=== PATIENT | female | born 1955 | race Two or more races ===

== ENCOUNTER 2016-04-30 11:34 | Inpatient (IN) | payer OTHER ==
[~2016-04-30] VITALS: Ht 165.1 cm; Wt 126.0 kg
[~2016-04-30 11:34] MED LIST: ADV50050 INHALATION; ASPI-664 PO; CLOP75TA27 PO; EMPA10TA PO; GABA300C16 PO; GEMF600T60 PO; LEVO150T67 PO; LEVO250T9 PO; MONT10TA24 PO; NICO-524 TRANSDERM; NOVO7030 SC; OMEP20CA16 PO; OXYB5TAB7 PO; RANO500T2 PO; SIMV40TA2 PO
[2016-04-30] MEDS ORDERED: ONDANSETRON 4 MG INJ IV STA (12:48)
[2016-04-30] MEDS ORDERED: SOD CHLORIDE 0.9% 1,000 ML IV ONE (13:00)
[2016-04-30] MEDS ORDERED: MECLIZINE 12.5 MG TAB PO ONE (13:00)
--- NOTE | 2016-04-30 13:23 | RADRPT ---
PROCEDURE: Chest Radiograph. CLINICAL INDICATION: Chest pain TECHNIQUE: Single frontal chest radiograph. COMPARISON: Chest radiograph 10/15/2015 FINDINGS: Study is limited due to underpenetration secondary to patient body habitus. The heart is magnified and likely within normal limits for size. Atherosclerotic calcifications are present. No infiltrate or effusion is seen. The bones are intact. IMPRESSION: 1. No evidence of acute cardiopulmonary disease. 2. Atherosclerotic vascular disease. RPTAT: KK .Tony Mcallister MD, Date Time Electronically viewed and signed by .Tony Mcallister MD, on 04/30/2016 13:22 .B/
[2016-04-30 13:32] LABS: BASOPHIL # 0.1 10^3/ul (0.0-0.1); BASOPHILS % 0.6 % (0.0-2.0); EOSINOPHILS # 0.3 10^3/ul (0.0-0.5); EOSINOPHILS % 1.9 % (0.0-7.0); HEMATOCRIT 39.1 % (37.0-47.0); HEMOGLOBIN 12.9 g/dl (12.0-16.0); LYMPHOCYTES # 4.8 10^3/ul (0.8-2.9); LYMPHOCYTES % 34.6 % (15.0-51.0); MEAN CORPUSCULAR VOLUME 84.8 fl (82.0-101.0); MEAN PLATELET VOLUME 10.6 fl (7.4-10.4); MONOCYTE # 1.1 10^3/ul (0.3-0.9); MONOCYTES % 7.7 % (0.0-11.0); NEUTROPHIL # 7.7 10^3/ul (1.6-7.5); NEUTROPHILS % 55.2 % (39.0-77.0); PLATELET COUNT 230 10^3/UL (140-440); RED BLOOD COUNT 4.61 10^6/ul (4.20-5.40); RED CELL DISTRIBUTION WIDTH 14.9 % (11.5-14.5); UNCORRECTED WBC 13.9 10^3/ul (4.8-10.8); WHITE BLOOD COUNT 13.9 10^3/ul (4.8-10.8)
--- NOTE | 2016-04-30 13:32 | RADRPT ---
PROCEDURE: CT brain without contrast CLINICAL INDICATION: Dizziness TECHNIQUE: CT of the brain without contrast performed on a multidetector CT scanner, with multiplan ar reformats. One or more of the following dose reduction techniques were used: Automated exposure control, adjustment in mA and / or kV according to patient size, use of iterative reconstructive luke hnique. CTDIvol = 43 mGy; DLP = 630 mGy-cm. COMPARISON: None available FINDINGS: Chronic lacunar infarcts are identified in the anne, bilateral basal ganglia and thalami. No acute intracranial hemorrhage is identified. No extra-axial fluid collection is seen. There is no mass effect. No midline shift is identified. Ventricles and sulci are mildly enlarged compatible with generalized volume loss. There are mild to moderate areas of hypodensity in the periventricular - deep white matter which are nonspecific but suggestive of chronic small vessel ischemic changes. Le-white differentiation is preserved. Sella is partly empty. Atherosclerotic calcifications of the proximal intracranial arteries are noted. Osseous structures are grossly unremarkable. Mastoid air cells and imaged paranasal sinuses grossly clear. IMPRESSION: 1. No evidence of acute intracranial pathology. 2. Chronic pontine, bilateral basal ganglia and thalamic lacunar infarcts. 3. Mild generalized volume loss, with mild-moderate chronic small vessel ischemic changes. RPTAT: VV .Raphael Denis MD, MD Date Time Electronically viewed and signed by .Raphael Denis MD, on 04/30/2016 13:32 .O/
[2016-04-30 13:39] LABS: ALBUMIN 3.3 g/dl (3.3-4.9); CHLORIDE 104 mmol/L (97-110); INR 0.94; PROTIME 12.6 Sec (12.2-14.2)
[2016-04-30 13:40] LABS: POTASSIUM 4.8 mmol/L (3.5-5.1); SODIUM 143 mmol/L (135-144)
[2016-04-30 13:41] LABS: CREATININE 1.49 mg/dl (0.44-1.00)
[2016-04-30 13:42] LABS: ALANINE AMINOTRANSFERASE 25 IU/L (13-69); ALBUMIN/GLOBULIN RATIO 0.78; ALKALINE PHOSPHATASE 115 IU/L (42-121); ANION GAP 19 (8-16); ASPARTATE AMINO TRANSFERASE 22 IU/L (15-46); BILIRUBIN,INDIRECT 0.1 mg/dl (0-1.1); BILIRUBIN,TOTAL 0.1 mg/dl (0.2-1.3); BLOOD UREA NITROGEN 31 mg/dl (7-20); CALCIUM 9.1 mg/dl (8.4-10.2); CARBON DIOXIDE 25 mmol/L (21-31); GLUCOSE 226 mg/dl (70-220); TOTAL PROTEIN 7.5 g/dl (6.1-8.1)
[2016-04-30 13:59] LABS: TROPONIN-I < 0.012 ng/ml (0.00-0.12)
[2016-04-30 14:32] LABS: CONDITION 1; LH ANALYZER COMMENTS 1
--- NOTE | 2016-04-30 15:44 | ERA ---
ER Documentation Chief Complaint Date/Time DATE: 04/30/16 TIME: 15:36 Chief Complaint RIGHT EYE LOSS OF VISION FOR COUPLE OF DAYS, DIZZY, SLOWER THAN NORMAL; HPI Patient is a 60-year-old female who is a very difficult historian. Initially she came in saying that she could not see and that she was dizzy. Her daughter came and was able to translate in Hebrew for us. It turns out that she is having diplopia particularly when she looks down. It is apparently a an incomplete diplopia that is overlapping. When she covers up each eye the diplopia resolves. When she looks up the diplopia resolves. She also feels dizzy is in a spinning sensation and is having difficulty ambulating. She has been nauseated without any vomiting. Her daughter states that she has had altered mental status and has not been behaving normally. She has not hit her head on anything. She has not had any fever, chest pain, shortness of breath, coughing, congestion, rhinorrhea, sore throat or otalgia. She denies any focal paresthesias or weakness that is new or different. She apparently has some chronic weakness of her right lower extremity that has been present for 11 years. She denies any abdominal pain, diarrhea, dysuria, or hematuria. No abnormal rashes, bleeding, or bruising. In the remainder of the systems are negative. ROS All systems reviewed and are negative except as per history of present illness. Medications Home Meds Active Scripts Ranolazine* (Ranexa*) 500 Mg Tab.sr.12h, 500 MG PO Q12 for 30 Days, TAB 3 Refills Prov:CHEYANNE AGUILAR 10/11/15 Clopidogrel Bisulfate (Clopidogrel) 75 Mg Tablet, 75 MG PO DAILY for 30 Days, TAB 3 Refills Prov:CHEYANNE AGUILAR 10/11/15 Reported Medications Aspirin (Low Dose Aspirin) 81 Mg Tablet.dr, 81 MG PO DAILY, #30 TAB 10/15/15 Simvastatin* (Zocor*) 40 Mg Tablet, 40 MG PO QHS, #30 TAB 09/25/15 Empagliflozin (Jardiance) 10 Mg Tablet, 10 MG PO DAILY, TAB 09/25/15 Insulin Isophan/Regular (Humulin 70/30) 100 Units/Ml Susp, 30 UNIT SC TID, EA 09/25/15 Gabapentin* (Gabapentin*) 300 Mg Capsule, 300 MG PO TID, #90 CAP 09/25/15 Omeprazole* (Omeprazole*) 20 Mg Capsule.dr, 20 MG PO DAILY, #30 CAP 09/25/15 Oxybutynin Chloride* (Ditropan*) 5 Mg Tab, 5 MG PO TID, TAB 09/25/15 Salmeterol Xinaf-Fluticasone* (Advair*) 500/50 Diskus Inhaler, 1 INH INHALATION BID, #1 INHALER 09/25/15 Levothyroxine Sodium* (Levothyroxine Sodium*) 150 Mcg Tablet, 150 MCG PO BEFORE BREAKFAST, #30 TAB 09/25/15 Montelukast Sodium* (Montelukast Sodium*) 10 Mg Tablet, 10 MG PO QHS, #30 TAB 09/25/15 Gemfibrozil* (Gemfibrozil*) 600 Mg Tablet, 600 MG PO BID, TAB 09/25/15 Discontinued Scripts Nicotine* (Nicoderm* Patch) 21 mg/day Patch, 1 PATCH TRANSDERM DAILY for 30 Days , PATCH 3 Refills Prov:CHEYANNE AGUILAR 10/11/15 Levofloxacin* (Levofloxacin*) 250 Mg Tablet, 250 MG PO DAILY@06 for 3 Days, TAB Prov:CHEYANNE AGUILAR 10/11/15 Allergies Allergies: Coded Allergies: No Known Allergy (Unverified , 10/15/15) PMhx/Soc History of Surgery: Yes Anesthesia Reaction: No Hx Neurological Disorder: Yes (TIA) Hx Respiratory Disorders: Yes (COPD) Hx Cardiac Disorders: Yes Hx Psychiatric Problems: No Hx Miscellaneous Medical Probl: Yes (morbid obesity, heavy tobacco use, asthma , DM, HTN, hypothyroidism) Hx Alcohol Use: No Hx Substance Use: No Hx Tobacco Use: Yes Smoking Status: Current every day smoker FmHx Family History: coronary disease, diabetes Physical Exam Vitals Vital Signs Date Time Temp Pulse Resp B/P Pulse Ox O2 Delivery O2 Flow Rate FiO2 04/30/16 15:02 71 19 148/71 98 Room Air 04/30/16 11:36 97.8 74 18 158/74 98 Physical Exam Const: [] Head: Atraumatic Eyes: Normal Conjunctiva ENT: Normal External Ears, Nose and Mouth. Neck: Full range of motion..~ No meningismus. Resp: Clear to auscultation bilaterally Cardio: Regular rate and rhythm, no murmurs Abd: Soft, non tender, non distended. Normal bowel sounds Skin: No petechiae or rashes Back: No midline or flank tenderness Ext: No cyanosis, or edema Neur: Awake and alert Psych: Normal Mood and Affect Result Diagram: 04/30/16 1304 04/30/16 1304 Results 24 hrs Laboratory Tests Test 04/30/16 13:04 Activated Partial Thromboplast Time 31.0Sec Alanine Aminotransferase (ALT/SGPT) 25IU/L Albumin 3.3g/dl Albumin/Globulin Ratio 0.78 Alkaline Phosphatase 115IU/L Anion Gap 19 Aspartate Amino Transf (AST/SGOT) 22IU/L Basophils # 0.110^3/ul Basophils % 0.6% Blood Morphology Comment Blood Urea Nitrogen 31mg/dl Calcium Level 9.1mg/dl Carbon Dioxide Level 25mmol/L Chloride Level 104mmol/L Creatinine 1.49mg/dl Direct Bilirubin 0.00mg/dl Eosinophils # 0.310^3/ul Eosinophils % 1.9% Globulin 4.20g/dl Glucose Level 226mg/dl Hematocrit 39.1% Hemoglobin 12.9g/dl INR International Normalized Ratio 0.94 Indirect Bilirubin 0.1mg/dl Lymphocytes # 4.810^3/ul Lymphocytes % 34.6% Mean Corpuscular Hemoglobin 28.0pg Mean Corpuscular Hemoglobin Concent 33.0g/dl Mean Corpuscular Volume 84.8fl Mean Platelet Volume 10.6fl Monocytes # 1.110^3/ul Monocytes % 7.7% Neutrophils # 7.710^3/ul Neutrophils % 55.2% Nucleated Red Blood Cells # 0.010^3/ul Nucleated Red Blood Cells % 0.0/100WBC Platelet Count 77694^3/UL Potassium Level 4.8mmol/L Prothrombin Time 12.6Sec Prothrombin Time Ratio 1.0 Red Blood Count 4.6110^6/ul Red Cell Distribution Width 14.9% Sodium Level 143mmol/L Total Bilirubin 0.1mg/dl Total Protein 7.5g/dl Troponin I < 0.012ng/ml White Blood Count 13.910^3/ul Current Medications Medications (Trade) Dose Ordered Sig/Louie Route PRN Reason Start Time Stop Time Status Last Admin Dose Admin Sodium Chloride (NS) 1,000 ml @ 1,000 mls/hr Q1H ONCE IV 04/30/16 13:00 04/30/16 13:59 DC 04/30/16 13:08 Meclizine HCl (Antivert) 25 mg ONCE ONCE PO 04/30/16 13:00 04/30/16 13:01 DC 04/30/16 14:20 Ondansetron HCl (Zofran Inj) 4 mg ONCE STAT IV 04/30/16 12:48 04/30/16 12:53 DC 04/30/16 13:08 Procedures/MDM EKG demonstrates a normal sinus rhythm at 83 bpm without any evidence of acute ischemia noted, there is poor R-wave progression noted with low voltage diffusely and nonspecific ST-T wave changes, there are no old EKGs available for comparison. 1539: There is no significant change in the patient's examination. I have put out a call to Dr. 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
[2016-04-30] MEDS ORDERED: ACETAMINOPHEN 325 MG TAB PO PRN ×2 (16:00→17:30)
[2016-04-30] MEDS ORDERED: ONDANSETRON 4 MG INJ IV PRN ×2 (16:00→17:30)
[2016-04-30] MEDS ORDERED: BISACODYL 10 MG SUPP PR PRN (17:30)
[2016-04-30] MEDS ORDERED: MAGNESIUM HYDROXIDE 30ML CUP PO PRN (17:30)
[2016-04-30] MEDS ORDERED: ACETAMINOPHEN 650 MG SUPP PR PRN (17:30)
[2016-04-30] MEDS ORDERED: DOCUSATE SODIUM 100 MG CAP PO PRN (17:30)
[2016-04-30] MEDS ORDERED: NACL 0.9% 3 ML SYG IV SCH (17:30)
[2016-04-30] MEDS ORDERED: GLUCOSE GEL 15 GRAM TUBE BUCCAL PRN (18:30)
[2016-04-30] MEDS ORDERED: MECLIZINE 25 MG TAB PO PRN (18:30)
[2016-04-30] MEDS ORDERED: GLUCOSE GEL 15 GRAM TUBE PO PRN ×2 (18:30)
[2016-04-30] MEDS ORDERED: DEXTROSE 50% 50 ML SYRINGE IV PRN ×2 (18:30)
[2016-04-30] MEDS ORDERED: GLUCAGON 1 MG INJ IM PRN (18:30)
--- NOTE | 2016-04-30 18:37 | RADRPT ---
PROCEDURE: US Carotids. CLINICAL INDICATION: Dizziness. Syncope. TECHNIQUE: Multiple sonographic of the carotid bifurcation region and vertebral arteries were obta ined utilizing martinez scale, duplex and color-flow imaging. The images were reviewed on a PACS worksta tion. COMPARISON: No prior studies are available for comparison. FINDINGS: Evaluation of the right carotid bifurcation region reveals mild atherosclerotic disease. Evaluation of the left carotid bifurcation region reveals mild atherosclerotic disease. There is antegrade flow within the vertebral arteries bilaterally. RIGHT CAROTID MEASUREMENTS: Common Carotid [id number] (cm/sec) Internal Carotid Artery - proximal 34 (cm/sec) Internal Carotid Artery - mid46 (cm/sec) Internal Carotid Artery - [id number] (cm/sec) External Carotid Artery 57 (cm/sec) Vertebral Zfacjw80 (cm/sec) Internal Carotid/Common Carotid0.8 LEFT CAROTID MEASUREMENTS: Common Carotid [id number] (cm/sec) Internal Carotid Artery - proximal 74 (cm/sec) Internal Carotid Artery - mid47 (cm/sec) Internal Carotid Artery - gzmacl23 (cm/sec) External Carotid Artery 80 (cm/sec) Vertebral Wvnhxu40 (cm/sec) Internal Carotid/Common Carotid0.8 Validated velocity measurements with angiographic measurements, velocity criteria are extrapolated f rom diameter data as defined by the Society of Radiologists in Ultrasound Consensus Conference Radio logy 2003; 229;340-346. This study does indirectly reference the measurement of the distal ICA diam eter as the denominator for stenosis measurement. IMPRESSION: 1. Mild atherosclerotic plaques without evidence for hemodynamically significant stenosis or occlus ion. 2. Normal antegrade flow in the vertebral arteries bilaterally. RPTAT: HFN .Delonte Royal MD, Date Time Electronically viewed and signed by .Delonte Royal MD, MD on 04/30/2016 18:37 .N/
--- NOTE | 2016-04-30 19:10 | HP ---
DATE OF ADMISSION: 04/30/2016 PREVIOUS ENVIRONMENTAL SERVICES FLOOR TECH: Alex Berkowitz MD CHIEF COMPLAINT ON ADMISSION: Left eye visual changes, dizziness. HISTORY OF PRESENT ILLNESS: This is a 60-year-old female with multiple medical problems including m orbid obesity, coronary artery disease, COPD, tobacco user, ischemic cardiomyopathy with ejection fr action of 35%, obstructive sleep apnea and hypoventilatory syndrome who was brought into the emergen cy department by her daughter with reported episode of visual disturbance, dizziness and imbalance. The patient is primary Sinhala speaking. Most of the history is obtained through ER physician docum entation who was able to get translation to the patient's daughter. Apparently, the patient has bee n having visual difficulties, especially diplopia. To me, the patient reports that her left eye is bothering her currently. She also reports dizziness over the past 3 days and imbalance. She denies any nausea, vomiting, fevers, chills, cough. She is on room air. She is doing actually very well from the respiratory standpoint currently. She denies any dysphagia, odynophagia, decreased hearing , focal weakness. She denies any paresthesias. She denies any gastrointestinal or cardiopulmonary symptoms. She denies any headaches. She reports compliance with her medications. She seems to hav e cataract and denies any visual disturbances per se, only reporting diplopia, more so than anything else that may be more consistent with cranial nerves and extraocular muscle involvement. Given her multiple comorbidities, she is being admitted to observation on telemetry to rule out acute CVA. C AT scan of the head showed some chronic changes, but no acute changes. ALLERGIES: NO KNOWN ALLERGIES. PAST MEDICAL HISTORY: 1. Coronary artery disease, status post percutaneous coronary intervention to LAD and RCA. This wa s 09/2015. 2. Ischemic cardiomyopathy, ejection fraction of 35%. 3. Diabetes mellitus. 4. Diabetic nephropathy. 5. Hypertensive nephropathy. 6. Chronic kidney disease stage III. 7. Hyperlipidemia. 8. Hypothyroidism. 9. Chronic obstructive pulmonary disease. 10. Obstructive sleep apnea. 11. Super morbid obesity. PAST SURGICAL HISTORY: Status post PTCA x2 back in 09/2015 with stenting of LAD and RCA. SOCIAL HISTORY: The patient has been a smoker for the past 35 years. Until her last admission, i ch was approximately 6 months ago now, she was smoking 1 to 2 packs a day. She denies any alcohol u se. REVIEW OF SYSTEMS: As per HPI. OUTPATIENT MEDICATIONS: 1. Plavix 75 mg p.o. daily. 2. Gemfibrozil 600 mg p.o. b.i.d. 3. Ranexa 500 mg p.o. q. 12 hours. 4. Zocor 40 mg p.o. at bedtime. 5. Aspirin 81 mg p.o. daily. 6. Gabapentin 300 mg p.o. t.i.d. 7. Singulair 10 mg p.o. at bedtime. 8. Advair 500/50 one tab p.o. b.i.d. 9. Omeprazole 20 mg p.o. daily. 10. Jardiance 10 mg p.o. daily. 11. Humulin 70/30, 30 units subq t.i.d. 12. Synthroid 150 mcg q.a.m. 13. Ditropan 5 mg p.o. t.i.d. PHYSICAL EXAMINATION: GENERAL: She is alert and oriented x4. She is in no acute distress currently. She reports that sh e is hungry. She denies any dizziness. HEENT: Pupils are equally round and reactive to light. Extraocular muscles are intact. She is not complaining of any diplopia currently and all her extraocular muscles seem to be working well. NECK: No JVD, no thyromegaly noted. HEART: Regular rate and rhythm. No murmur, rubs, or gallops. LUNGS: Clear to auscultation bilaterally. ABDOMEN: Soft, obese, nontender, nondistended. EXTREMITIES: No edema, clubbing or cyanosis. LABORATORY DATA: White blood cell count is 13.9, hemoglobin 12.9, hematocrit 39.1, platelet count o f 230. Chemistry with a sodium of 143, potassium 4.8, chloride 104, bicarbonate 25, BUN 31, creatin ine 1.49, glucose of 226, calcium 9.1. LFTs within normal. Troponin less than 0.012. INR is 0.94, PT 12.6, PTT 31.0. EKG: The patient remains in sinus rhythm, at least on telemetry at this point. RADIOLOGICAL DATA: 1. Chest x-ray shows no evidence of acute cardiopulmonary disease, atherosclerotic vascular disease . 2. CAT scan of the brain shows no evidence of acute intracranial pathology, chronic pontine bilater al basal ganglia and thalami lacunar infarct, mild to moderate chronic small vessel ischemic changes , mild generalized volume loss. ASSESSMENT AND PLAN: This is a 60-year-old female with: 1. Episode of diplopia. She seems to be pointing to her left eye when complaining of visual distur bances. She does have multiple comorbidities and signs of chronic old cerebrovascular disease. The refore, she is being ruled out for acute cerebrovascular accident, especially any posterior cerebrov ascular accident given her symptoms of vertigo and possible cranial nerve involvement. MRI is pendi ng at this point. Carotid ultrasound has been ordered and the physical therapy, occupational therap y, speech therapy to see the patient in the morning. If she is ruled out for any cerebrovascular pa thology, she may be having just peripheral neuropathy in the setting of diabetes mellitus. 2. Coronary artery disease. Continue outpatient regimen. Currently, she denies any symptoms. 3. Hypertension. Continue outpatient regimen. 4. Diabetes mellitus. We will keep her on her outpatient regimen and will adjust as needed. Hemog lobin A1c is pending. 5. Hypertensive and diabetic nephropathy with chronic kidney disease, stage III. Monitor her renal function. Will recheck labs in the morning. 6. Hyperlipidemia. We will check fasting lipid panel. Continue statin therapy. 7. Hypothyroidism. Continue Synthroid. 8. Chronic obstructive pulmonary disease. Continue outpatient regimen. 9. Super morbid obesity. The patient actually seems to have lost some weight. DISPOSITION: The patient is admitted to telemetry observation for rule out TIA or CVA. If remains stable, she may be discharged in the next 24 hours. Prophylaxis. Protonix for GI prophylaxis and heparin subq for DVT prophylaxis. Dictated By: CHEYANNE MCALLISTER/DANIELA Conf#: [id number] DID#: [id number]
[2016-04-30 20:45] VITALS: TEMP 98.1
[2016-04-30] MEDS: SOD CHLORIDE 0.9% 1,000 ML IV SCH (20:51)
[2016-04-30 20:59] LABS: ADD UMIC YES; URINE BILIRUBIN (Dip) NEGATIVE (NEGATIVE); URINE BLOOD (Dip) 3+ (NEGATIVE); URINE COLOR LT. YELLOW (YELLOW); URINE GLUCOSE (Dip) >=1000 % (NEGATIVE); URINE KETONES (Dip) NEGATIVE (NEGATIVE); URINE LEUKOCYTE ESTERASE (Dip) 2+ (NEGATIVE); URINE NITRITE (Dip) NEGATIVE (NEGATIVE); URINE TOTAL PROTEIN (Dip) 2+ (NEGATIVE); URINE UROBILINOGEN (Dip) 0.2 E.U./dL (0.1-1.0)
[2016-04-30 21:52] LABS: BACTERIA,URINE MANY
[2016-04-30 21:53] LABS: SQUAMOUS EPITHELIAL CELL,UR FEW
[2016-04-30 21:56] VITALS: PULSE 64
[2016-04-30 22:00] VITALS: BP 134/63; PULSE 62; RESP 18
[2016-04-30] MEDS: MONTELUKAST 10 MG TAB PO SCH (22:00)
[2016-04-30] MEDS ORDERED: ATORVASTATIN 20 MG TAB PO SCH (22:00)
[2016-04-30 22:27] LABS: CREATINE KINASE 26 IU/L (23-200)
[2016-04-30 22:33] VITALS: Ht 165.1 cm; Wt 126.0 kg
[2016-04-30 22:37] LABS: CK-MB 0.23 ng/ml (0.0-2.4)
[2016-04-30 22:41] LABS: TROPONIN-I < 0.012 ng/ml (0.00-0.12)
[2016-04-30] MEDS: HEPARIN 5,000 UNIT/0.5 ML SYG SC SCH (23:57)
[2016-05-01] VITALS (12 sets, daily range): BP systolic 130–142; BP diastolic 61–84; PULSE 66–74; RESP 16–20
[2016-05-01] MEDS: GEMFIBROZIL 600 MG TAB PO SCH ×3 (01:12→20:54)
[2016-05-01] MEDS: OXYBUTYNIN 5 MG TAB PO SCH ×4 (01:13→20:53)
[2016-05-01] MEDS: RANOLAZINE (SR) 500 MG TAB PO SCH ×3 (01:13→20:53)
[2016-05-01] MEDS: SALMETEROL/FLUTICASONE 500/50 INHA INH SCH ×3 (01:13→20:49)
[2016-05-01] MEDS: GABAPENTIN 300 MG CAP PO SCH ×4 (01:13→20:53)
[2016-05-01] MEDS: INSULIN ASPART [NOVOLOG] 3 ML PEN SC SCH ×6 (01:21→20:55)
[2016-05-01] MEDS: SOD CHLORIDE 0.9% 1,000 ML IV SCH ×2 (03:18→06:56)
[2016-05-01] MEDS: PANTOPRAZOLE (EC) 40 MG TAB PO SCH (05:13)
[2016-05-01] MEDS: HEPARIN 5,000 UNIT/0.5 ML SYG SC SCH ×3 (05:17→20:58)
[2016-05-01] MEDS: LEVOTHYROXINE 150 MCG TAB PO SCH (06:56)
[2016-05-01] MEDS: HUMULIN 70/30 3ML VIAL SC SCH ×2 (07:30→13:06)
--- NOTE | 2016-05-01 07:42 | RADRPT ---
PROCEDURE: MR Brain noncontrast. CLINICAL INDICATION: CVA. TECHNIQUE: Multiplanar multisequence noncontrast MRI of the brain was performed. COMPARISON: Noncontrast CT of the head from April 30, 2016. FINDINGS: There is mild generalized cerebral volume loss. There are moderate periventricular and bilateral subcortical T2 hyperintensities suggesting chronic microvascular ischemic changes. There is a 4 mm focus of restricted diffusion within the left dorsal midbrain (image 11 series 3) mo st compatible with acute / recent infarction. There is also a linear area of restricted diffusion w ithin the right paramedian anne compatible acute / recent infarction (image 8 series 3). There is a lso a 7 mm acute / recent infarction within the left posterior frontal lobe centrum semiovale (image 18 series 3). There is also an acute / recent 9 mm infarction within the left anterior galicia radia ta. There is associated T2 FLAIR hyperintensity within the right anne. There is a chronic left pontine lacunar infarction. There are chronic bilateral basal ganglia and th alamic lacunar infarctions. There is no intracranial hemorrhage or extra-axial fluid collection. There is no mass effect. There is no midline shift. The posterior fossa is unremarkable. The normal intracranial, intravascular flow voids are preserved. There is minimal bilateral ethmoid sinus mucosal thickening. The orbits are grossly unremarkable. There is no destructive osseous lesion. IMPRESSION: 1. Acute / recent infarctions within the right paramedian anne, left dorsal midbrain, left anterior galicia radiata, and left posterior centrum semiovale. 2. Moderate chronic microvascular ischemic changes. 3. Mild generalized cerebral volume loss. 4. Chronic left pontine as well as bilateral basal ganglia and thalamic lacunar infarctions. 5. No acute intracranial hemorrhage. Further findings as detailed above. These findings were discussed with nurse Augustine at 07:39 a.m. on May 01, 2016. RPTAT: PP .Karan Dawkins MD, Date Time Electronically viewed and signed by .Karan Dawkins MD, MD on 05/01/2016 07:41 .F/
[2016-05-01 07:51] LABS: BASOPHILS % 0.4 % (0.0-2.0); EOSINOPHILS # 0.1 10^3/ul (0.0-0.5); EOSINOPHILS % 1.4 % (0.0-7.0); HEMATOCRIT 36.3 % (37.0-47.0); HEMOGLOBIN 12.1 g/dl (12.0-16.0); LYMPHOCYTES % 32.8 % (15.0-51.0); MEAN CORPUSCULAR HEMOGLOBIN 28.4 pg (29.0-33.0); MEAN CORPUSCULAR HGB CONC 33.4 g/dl (32.0-37.0); MEAN CORPUSCULAR VOLUME 85.1 fl (82.0-101.0); MEAN PLATELET VOLUME 9.9 fl (7.4-10.4); MONOCYTE # 0.5 10^3/ul (0.3-0.9); MONOCYTES % 5.8 % (0.0-11.0); NEUTROPHIL # 5.4 10^3/ul (1.6-7.5); NEUTROPHILS % 59.6 % (39.0-77.0); PLATELET COUNT 165 10^3/UL (140-440); RED BLOOD COUNT 4.27 10^6/ul (4.20-5.40)
[2016-05-01 08:00] LABS: CREATINE KINASE 33 IU/L (23-200)
[2016-05-01 08:01] LABS: CK-MB 0.27 ng/ml (0.0-2.4)
[2016-05-01 08:03] LABS: CONDITION 1; LH ANALYZER COMMENTS 1
[2016-05-01 08:18] LABS: TROPONIN-I < 0.012 ng/ml (0.00-0.12)
[2016-05-01 09:17] LABS: ALBUMIN 2.9 g/dl (3.3-4.9); POTASSIUM 5.5 mmol/L (3.5-5.1)
[2016-05-01 09:19] LABS: ALBUMIN/GLOBULIN RATIO 0.87; BILIRUBIN,INDIRECT 0.1 mg/dl (0-1.1); BILIRUBIN,TOTAL 0.1 mg/dl (0.2-1.3); CREATININE 1.35 mg/dl (0.44-1.00); TOTAL PROTEIN 6.2 g/dl (6.1-8.1)
[2016-05-01 09:20] LABS: CALCIUM 8.8 mg/dl (8.4-10.2); MAGNESIUM 2.2 mg/dl (1.7-2.5)
[2016-05-01 09:21] LABS: CHOL/HDL RATIO 4.5 RATIO
[2016-05-01] MEDS: CLOPIDOGREL 75 MG TAB PO SCH (10:06)
[2016-05-01] MEDS: ASPIRIN (EC) 81 MG TAB PO SCH (10:19)
[2016-05-01] MEDS: EMPAGLIFLOZIN 10 MG TABLET PO SCH (11:48)
[2016-05-01 12:38] LABS: THYROID STIMULATING HORMONE 5.85 MIU/L (0.465-4.680)
--- NOTE | 2016-05-01 12:44 | CONS ---
Date/Time of Note Date/Time of Note DATE: 05/01/16 TIME: 12:32 Assessment/Plan Assessment/Plan Chief Complaint/Hosp Course 60 year old female with history of CAD ischemic cardiomyopathy EF: 35%, HTN, DM , CKD, HLD, COPD, FOX p/w blurred vision and dizziness with bihemispheric acute infarcts as well as involvement of brainstem. Suspect cardioembolic etiology. Plan: -frequent neurochecks q4h -maintain normotension check FLP, HBA1c for optimization of risk factors -continue Lipitor 20 mg until FLP results -ECHO with a bubble study may also require VALENTÍN to r/o LA thrombus -vessel imaging- MRA Head and MRA Neck w/o contrast -continue monitoring on tele for afib -given cardiomyopathy, low EF will likely favor switching from dual antiplatelet therapy to Coumadin for secondary stroke prevention -smoking cessation -DVT ppx -PT/OT/Speech evaluation -will follow Problems: Consultation Date/Type/Reason Admit Date/Time Apr 30, 2016 at 15:48 Date of Consultation: May 01, 2016 Type of Consultation: Neurology Reason for Consultation CVA evaluation Referring Provider: CHEYANNE MONTENEGRO Hx of Present Illness 60 year old female with multiple medical issues including morbid obesity, CAD, COPD, chronic smoking hx, cardiomyopathy with EF:35%, FOX brought in for 2 days of visual disturbances, dizziness and gait imbalance. She reports double vision , weakness in her LE and difficulty with ambulation. She denies any loss of vision, no facial drooping or dysarthria, no dysphagia reported or numbness in extremities. At home she admits to taking aspirin 81 mg daily and Plavix 75 mg. CTH chronic changes- chronic pontine and thalamic lacunar infarcts moderate small vessel disease MRI Brain shows acute stroke in left dorsal midbrain, right paramedian pontine infarct, left posterior frontal lobe acute infarct, left anterior galicia radiata chronic pontine infarcts, chronic bilateral basal ganglia and thalamic lacunar infarcts double vision blurred vision weakness in both legs Past Surgical History Past Surgical Hx: no surgical history Social History Smoking Status: Former smoker Exam/Review of Systems Vital Signs Vitals Vital Signs Date Time Temp Pulse Resp B/P Pulse Ox O2 Delivery O2 Flow Rate FiO2 05/01/16 12:27 74 05/01/16 12:19 97.7 16 142/84 94 04/30/16 22:00 Room Air Intake and Output 2/1/17 2/1/17 2/2/17 15:00 23:00 07:00 Intake Total 1380 ml Output Total 1600 ml Balance -220 ml Exam awake and alert oriented to self and hospital inattentive at times drowsy says she feels unwell no aphasia, but has slowed speech CN: NORI, VFF, blinks to threat b/l, slight skew deviation on upgaze no nystagmus, mild right NLF flattening, palate upgoing uvula midline scm/trap intact tongue is mildline, mild dysarthria Motor: mild finger curl on left compared to right she is able to lift both arms anti-gravity and maintain for over 5 seconds LE bilateral she lifts anti-gravity for a few seconds LE edema present Sensory intact throughout to DSS Coordination: bilateral ataxia worse on the left, also impaired by double vision Reflexes 2+ UE, absent KJ and AJ toes mute Results Result Diagram: 05/01/16 0630 05/01/16 0630 Results 24 hrs Laboratory Tests Test 04/30/16 13:04 04/30/16 20:30 04/30/16 22:00 04/30/16 22:27 Activated Partial Thromboplast Time 31.0 Alanine Aminotransferase (ALT/SGPT) 25 Albumin 3.3 Albumin/Globulin Ratio 0.78 Alkaline Phosphatase 115 Anion Gap 19 H Aspartate Amino Transf (AST/SGOT) 22 Basophils # 0.1 Basophils % 0.6 Blood Morphology Comment Blood Urea Nitrogen 31 H Calcium Level 9.1 Carbon Dioxide Level 25 Chloride Level 104 Creatinine 1.49 H Direct Bilirubin 0.00 Eosinophils # 0.3 Eosinophils % 1.9 Globulin 4.20 H Glucose Level 226 H Hematocrit 39.1 Hemoglobin 12.9 INR International Normalized Ratio 0.94 Indirect Bilirubin 0.1 Lymphocytes # 4.8 H Lymphocytes % 34.6 Mean Corpuscular Hemoglobin 28.0 L Mean Corpuscular Hemoglobin Concent 33.0 Mean Corpuscular Volume 84.8 Mean Platelet Volume 10.6 H Monocytes # 1.1 H Monocytes % 7.7 Neutrophils # 7.7 H Neutrophils % 55.2 Nucleated Red Blood Cells # 0.0 Nucleated Red Blood Cells % 0.0 Platelet Count 230 Potassium Level 4.8 Prothrombin Time 12.6 Prothrombin Time Ratio 1.0 Red Blood Count 4.61 Red Cell Distribution Width 14.9 H Sodium Level 143 Total Bilirubin 0.1 L Total Protein 7.5 Troponin I < 0.012 < 0.012 White Blood Count 13.9 H Urine Bacteria MANY Urine Bilirubin NEGATIVE Urine Clarity CLEAR Urine Color LT. YELLOW Urine Glucose >=1000 Urine Hemoglobin 3+ H Urine Ketones NEGATIVE Urine Leukocyte Esterase 2+ H Urine Microscopic RBC 2-5 Urine Microscopic WBC 10-25 Urine Nitrite NEGATIVE Urine Specific [place] 1.020 Urine Squamous Epithelial Cells FEW Urine Total Protein 2+ H Urine Urobilinogen 0.2 E.U./dL Urine Yeast FEW Urine pH 5.5 Creatine Kinase 26 Creatine Kinase Index 0.9 Creatinine Kinase MB (Mass) 0.23 Bedside Glucose 316 H Test 05/01/16 01:11 05/01/16 06:30 05/01/16 07:05 05/01/16 08:37 Bedside Glucose 287 H 263 H Alanine Aminotransferase (ALT/SGPT) 24 Albumin 2.9 L Albumin/Globulin Ratio 0.87 Alkaline Phosphatase 112 Anion Gap 17 H Aspartate Amino Transf (AST/SGOT) 16 Basophils # 0.0 Basophils % 0.4 Blood Morphology Comment Blood Urea Nitrogen 30 H Calcium Level 8.8 Carbon Dioxide Level 23 Chloride Level 108 Cholesterol Level 168 Cholesterol/HDL Ratio 4.5 Creatine Kinase 33 Creatine Kinase Index 0.8 Creatinine 1.35 H Creatinine Kinase MB (Mass) 0.27 Direct Bilirubin 0.00 Eosinophils # 0.1 Eosinophils % 1.4 Globulin 3.30 H Glucose Level 226 H HDL Cholesterol 37 Hematocrit 36.3 L Hemoglobin 12.1 Indirect Bilirubin 0.1 LDL Cholesterol, Calculated 87 Lymphocytes # 3.0 H Lymphocytes % 32.8 Magnesium Level 2.2 Mean Corpuscular Hemoglobin 28.4 L Mean Corpuscular Hemoglobin Concent 33.4 Mean Corpuscular Volume 85.1 Mean Platelet Volume 9.9 Monocytes # 0.5 Monocytes % 5.8 Neutrophils # 5.4 Neutrophils % 59.6 Nucleated Red Blood Cells # 0.0 Nucleated Red Blood Cells % 0.0 Platelet Count 165 # Potassium Level 5.5 H Red Blood Count 4.27 Red Cell Distribution Width 15.0 H Sodium Level 142 Thyroid Stimulating Hormone (TSH) Pending Total Bilirubin 0.1 L Total Protein 6.2 # Triglycerides Level 219 H Troponin I < 0.012 White Blood Count 9.0 # Free Thyroxine 1.02 Test 05/01/16 11:58 Bedside Glucose 314 H Medications Medications Current Medications Aspirin (Halfprin) 81 mg DAILY PO Last administered on 05/01/16 10:19; Admin Dose 81 MG; Start 05/01/16 at 09:00 Clopidogrel Bisulfate (plaVIX) 75 mg DAILY PO Last administered on 05/01/16 10: 06; Admin Dose 75 MG; Start 05/01/16 at 09:00 Empaglifozin (Jardiance) 10 mg DAILY PO Last administered on 05/01/16 11:48; Admin Dose 10 MG; Start 05/01/16 at 09:00 Gabapentin (Neurontin) 300 mg TID PO Last administered on 05/01/16 10:05; Admin Dose 300 MG; Start 04/30/16 at 22:00 Gemfibrozil (Lopid) 600 mg BID PO Last administered on 05/01/16 10:06; Admin Dose 600 MG; Start 04/30/16 at 22:00 Montelukast Sodium (Singulair) 10 mg QHS PO Last administered on 04/30/16 22:00 ; Admin Dose 10 MG; Start 04/30/16 at 22:00 Oxybutynin Chloride (Ditropan) 5 mg TID PO Last administered on 05/01/16 10:20 ; Admin Dose 5 MG; Start 04/30/16 at 22:00 Ranolazine (Ranexa) 500 mg Q12 PO Last administered on 05/01/16 10:19; Admin Dose 500 MG; Start 04/30/16 at 22:00 Salmeterol Xinafoate/ Fluticasone (Advair 500/50 Diskus) 1 inh BID INH Last administered on 05/01/16 10:20; Admin Dose 1 INH; Start 04/30/16 at 22:00 Atorvastatin Calcium 20 mg 20 mg DAILY@21 PO Last administered on 05/01/16 01: 13; Admin Dose 20 MG; Start 04/30/16 at 22:00 Sodium Chloride (NS) 1,000 ml @ 100 mls/hr Q10H IV Last administered on 06:56; Admin Dose 100 MLS/HR; Start 04/30/16 at 17:18 Ondansetron HCl (Zofran Inj) 4 mg Q6H PRN IV NAUSEA AND/OR VOMITING; Start 04/30 at 17:30 Acetaminophen (Tylenol Tab) 650 mg Q6H PRN PO PAIN LEVEL 1-3 OR FEVER; Start at 17:30 Acetaminophen (Tylenol Supp) 650 mg Q6H PRN [place] PAIN LEVEL 1-3 OR FEVER; Start 04/30/16 at 17:30 Docusate Sodium (Colace) 100 mg Q12H PRN PO CONSTIPATION Last administered on 01:12; Admin Dose 100 MG; Start 04/30/16 at 17:30 Magnesium Hydroxide (Milk Of Mag) 30 ml DAILY PRN PO CONSTIPATION; Start at 17:30 Bisacodyl (Dulcolax Supp) 10 mg DAILY PRN [place] CONSTIPATION; Start 04/30/16 at 17: 30 Pantoprazole (Protonix Tab) 40 mg DAILY@06 PO Last administered on 05/01/16 05: 13; Admin Dose 40 MG; Start 05/01/16 at 06:00 Heparin Sodium (Porcine) (Heparin (5000 Units/0.5 ml)) 5,000 unit Q8 SC Last administered on 05/01/16 05:17; Admin Dose 5,000 UNIT; Start 04/30/16 at 22:00 Meclizine HCl (Antivert) 25 mg TID PRN PO VERTIGO; Start 04/30/16 at 18:30 Miscellaneous Information 1 ea NOTE XX ; Start 04/30/16 at 18:30 Glucose (Glutose) 15 gm Q15M PRN PO DECREASED GLUCOSE; Start 04/30/16 at 18:30 Glucose (Glutose) 22.5 gm Q15M PRN PO DECREASED GLUCOSE; Start 04/30/16 at 18:30 Dextrose (D50w Syringe) 25 ml Q15M PRN IV DECREASED GLUCOSE; Start 04/30/16 at 18:30 Dextrose (D50w Syringe) 50 ml Q15M PRN IV DECREASED GLUCOSE; Start 04/30/16 at 18:30 Glucagon (Glucagen) 1 mg Q15M PRN IM DECREASED GLUCOSE; Start 04/30/16 at 18:30 Glucose (Glutose) 15 gm Q15M PRN BUCCAL DECREASED GLUCOSE; Start 04/30/16 at 18: 30 VERENA WATTS MD May 01, 2016 12:43
--- NOTE | 2016-05-01 14:42 | PN ---
Date/Time of Note Date/Time of Note DATE: 05/01/16 TIME: 14:15 Assessment/Plan VTE Prophylaxis VTE Prophylaxis Intervention: heparin Lines/Catheters IV C[facility]ter Type ([facility] Peripheral IV Urinary Cath still in place: Yes Reason Cath still needed: other (indicate) (for UOP monitoring ) Assessment/Plan Assessment/Plan 60-year-old female with: 1. Episode of Diplopia. She seems to be pointing to her left eye when complaining of visual disturbances. MRI brain with findings of Acute ans subacute CVA Discussed with Neurology and 2D echo, MRA brain and neck pending On ASA and Plavix already because of cardiac stent Physical therapy, occupational therapy, speech therapy eval 2. Coronary artery disease. Continue outpatient regimen. 3. Hypertension. Continue current regimen. 4. Diabetes mellitus. A1c is 9.6. Insulin regimen discussed with DM educator and changing patient to Lantus So starting Lantus 40 units QHS and novolog 10 units QAC. Likely will need to titrate Lantus up Continue current outpatient po meds for now. 5. Hypertensive and diabetic nephropathy with chronic kidney disease, stage III. Stable renal function. On IVF 6. Hyperlipidemia. Increase Lipitor to 40 mg po daily and also continue Gemfibrozil for now. 7. Hypothyroidism. Continue Synthroid. 8. Chronic obstructive pulmonary disease. Continue outpatient regimen. 9. Super morbid obesity. The patient actually seems to have lost some weight. DISPOSITION: Work up for newly diagnosed acute CVA, PT/OT. Prophylaxis. Protonix for GI prophylaxis and heparin subq for DVT prophylaxis. Subjective 24 Hr Interval Summary Free Text/Dictation Patient found to have acute CVA and multiple areas bilaterally worrisome for embolic CVA MRAs pending and patient has been seen by Neurology today, 2D echo pending Exam/Review of Systems Vital Signs Vitals Vital Signs Date Time Temp Pulse Resp B/P Pulse Ox O2 Delivery O2 Flow Rate FiO2 05/01/16 12:27 74 05/01/16 12:19 97.7 16 142/84 94 04/30/16 22:00 Room Air Intake and Output 04/30/16 04/30/16 05/01/16 15:00 23:00 07:00 Intake Total 1380 ml Output Total 1600 ml Balance -220 ml Exam Constitutional: alert, obese, oriented, well developed Respiratory: clear to auscultation, normal air movement Cardiovascular: nl pulses, regular rate and rhythm Gastrointestinal: non-tender, soft Musculoskeletal: nl extremities to inspection Extremities: normal pulses, other (no edema, clubbing or cyanosis ) 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 YELLOW Urine Glucose >=1000 Urine Hemoglobin 3+ H Urine Ketones NEGATIVE Urine Leukocyte Esterase 2+ H Urine Microscopic RBC 2-5 Urine Microscopic WBC 10-25 Urine Nitrite NEGATIVE Urine Specific [place] 1.020 Urine Squamous Epithelial Cells FEW Urine Total Protein 2+ H Urine Urobilinogen 0.2 E.U./dL Urine Yeast FEW Urine pH 5.5 Creatine Kinase 26 Creatine Kinase Index 0.9 Creatinine Kinase MB (Mass) 0.23 Troponin I < 0.012 Bedside Glucose 316 H 287 H Test 05/01/16 06:30 05/01/16 07:05 05/01/16 08:37 05/01/16 11:58 Alanine Aminotransferase (ALT/SGPT) 24 Albumin 2.9 L Albumin/Globulin Ratio 0.87 Alkaline Phosphatase 112 Anion Gap 17 H Aspartate Amino Transf (AST/SGOT) 16 Basophils # 0.0 Basophils % 0.4 Blood Morphology Comment Blood Urea Nitrogen 30 H Calcium Level 8.8 Carbon Dioxide Level 23 Chloride Level 108 Cholesterol Level 168 Cholesterol/HDL Ratio 4.5 Creatine Kinase 33 Creatine Kinase Index 0.8 Creatinine 1.35 H Creatinine Kinase MB (Mass) 0.27 Direct Bilirubin 0.00 Eosinophils # 0.1 Eosinophils % 1.4 Globulin 3.30 H Glucose Level 226 H HDL Cholesterol 37 Hematocrit 36.3 L Hemoglobin 12.1 Hemoglobin A1c 9.6 H Indirect Bilirubin 0.1 LDL Cholesterol, Calculated 87 Lymphocytes # 3.0 H Lymphocytes % 32.8 Magnesium Level 2.2 Mean Corpuscular Hemoglobin 28.4 L Mean Corpuscular Hemoglobin Concent 33.4 Mean Corpuscular Volume 85.1 Mean Platelet Volume 9.9 Monocytes # 0.5 Monocytes % 5.8 Neutrophils # 5.4 Neutrophils % 59.6 Nucleated Red Blood Cells # 0.0 Nucleated Red Blood Cells % 0.0 Platelet Count 165 # Potassium Level 5.5 H Red Blood Count 4.27 Red Cell Distribution Width 15.0 H Sodium Level 142 Thyroid Stimulating Hormone (TSH) 5.850 H Total Bilirubin 0.1 L Total Protein 6.2 # Triglycerides Level 219 H Troponin I < 0.012 White Blood Count 9.0 # Free Thyroxine 1.02 Bedside Glucose 263 H 314 H Medications Medications Current Medications Aspirin (Halfprin) 81 mg DAILY PO Last administered on 05/01/16 10:19; Admin Dose 81 MG; Start 05/01/16 at 09:00 Clopidogrel Bisulfate (plaVIX) 75 mg DAILY PO Last administered on 05/01/16 10: 06; Admin Dose 75 MG; Start 05/01/16 at 09:00 Empaglifozin (Jardiance) 10 mg DAILY PO Last administered on 05/01/16 11:48; Admin Dose 10 MG; Start 05/01/16 at 09:00 Gabapentin (Neurontin) 300 mg TID PO Last administered on 05/01/16 10:05; Admin Dose 300 MG; Start 04/30/16 at 22:00 Gemfibrozil (Lopid) 600 mg BID PO Last administered on 05/01/16 10:06; Admin Dose 600 MG; Start 04/30/16 at 22:00 Montelukast Sodium (Singulair) 10 mg QHS PO Last administered on 04/30/16 22:00 ; Admin Dose 10 MG; Start 04/30/16 at 22:00 Oxybutynin Chloride (Ditropan) 5 mg TID PO Last administered on 05/01/16 10:20 ; Admin Dose 5 MG; Start 04/30/16 at 22:00 Ranolazine (Ranexa) 500 mg Q12 PO Last administered on 05/01/16 10:19; Admin Dose 500 MG; Start 04/30/16 at 22:00 Salmeterol Xinafoate/ Fluticasone (Advair 500/50 Diskus) 1 inh BID INH Last administered on 05/01/16 10:20; Admin Dose 1 INH; Start 04/30/16 at 22:00 Atorvastatin Calcium 20 mg 20 mg DAILY@21 PO Last administered on 05/01/16 01: 13; Admin Dose 20 MG; Start 04/30/16 at 22:00 Sodium Chloride (NS) 1,000 ml @ 100 mls/hr Q10H IV Last administered on 06:56; Admin Dose 100 MLS/HR; Start 04/30/16 at 17:18 Ondansetron HCl (Zofran Inj) 4 mg Q6H PRN IV NAUSEA AND/OR VOMITING; Start 04/30 at 17:30 Acetaminophen (Tylenol Tab) 650 mg Q6H PRN PO PAIN LEVEL 1-3 OR FEVER; Start at 17:30 Acetaminophen (Tylenol Supp) 650 mg Q6H PRN [place] PAIN LEVEL 1-3 OR FEVER; Start 04/30/16 at 17:30 Docusate Sodium (Colace) 100 mg Q12H PRN PO CONSTIPATION Last administered on 01:12; Admin Dose 100 MG; Start 04/30/16 at 17:30 Magnesium Hydroxide (Milk Of Mag) 30 ml DAILY PRN PO CONSTIPATION; Start at 17:30 Bisacodyl (Dulcolax Supp) 10 mg DAILY PRN [place] CONSTIPATION; Start 04/30/16 at 17: 30 Pantoprazole (Protonix Tab) 40 mg DAILY@06 PO Last administered on 05/01/16 05: 13; Admin Dose 40 MG; Start 05/01/16 at 06:00 Heparin Sodium (Porcine) (Heparin (5000 Units/0.5 ml)) 5,000 unit Q8 SC Last administered on 05/01/16 05:17; Admin Dose 5,000 UNIT; Start 04/30/16 at 22:00 Meclizine HCl (Antivert) 25 mg TID PRN PO VERTIGO; Start 04/30/16 at 18:30 Miscellaneous Information 1 ea NOTE XX ; Start 04/30/16 at 18:30 Glucose (Glutose) 15 gm Q15M PRN PO DECREASED GLUCOSE; Start 04/30/16 at 18:30 Glucose (Glutose) 22.5 gm Q15M PRN PO DECREASED GLUCOSE; Start 04/30/16 at 18:30 Dextrose (D50w Syringe) 25 ml Q15M PRN IV DECREASED GLUCOSE; Start 04/30/16 at 18:30 Dextrose (D50w Syringe) 50 ml Q15M PRN IV DECREASED GLUCOSE; Start 04/30/16 at 18:30 Glucagon (Glucagen) 1 mg Q15M PRN IM DECREASED GLUCOSE; Start 04/30/16 at 18:30 Glucose (Glutose) 15 gm Q15M PRN BUCCAL DECREASED GLUCOSE; Start 04/30/16 at 18: 30 CHEYANNE MONTENEGRO May 01, 2016 14:28
--- NOTE | 2016-05-01 15:54 | RADRPT ---
PROCEDURE: MRA brain, and neck without contrast CLINICAL INDICATION: Acute stroke TECHNIQUE: 3-D [id number] intracranial MRA brain, and neck without contrast was performed on a 3.0T scanner. Rotational MIP images were reformatted. The source images were also reviewed. COMPARISON: None available FINDINGS: There are artifacts somewhat limiting evaluation. MRA neck: No occlusion or hemodynamically significant stenosis is identified involving the bilatera l common carotid arteries, carotid bulbs, internal carotid arteries or vertebral arteries. No hemod ynamically significant stenosis is identified by NASCET criteria. No dissection is seen. MRA Brain: There is focal high-grade stenosis versus artifact at the left internal carotid artery. No occlusion or significant stenosis is identified involving the intracranial right internal caroti d artery, bilateral middle or anterior cerebral arteries, bilateral vertebral arteries, basilar stephan ry or bilateral posterior cerebral arteries. No gross aneurysm or vascular malformation is seen. IMPRESSION: 1. Evaluation somewhat limited by artifacts. 2. MRA brain: Focal high-grade stenosis versus artifact at the supraclinoid left ICA. Otherwise n o occlusion or significant stenosis identified. 3. MRA neck: No occlusion or hemodynamically significant stenosis identified. 4. Consider further evaluation with CT angiography. RPTAT: HESO .Raphael Denis MD, MD Date Time Electronically viewed and signed by .Raphael Denis MD, on 05/01/2016 15:53 .O/
--- NOTE | 2016-05-01 16:02 | RADRPT ---
PROCEDURE: MRA brain, and neck without contrast CLINICAL INDICATION: Acute stroke TECHNIQUE: 3-D [id number] intracranial MRA brain, and neck without contrast was performed on a 3 .0T scanner. Rotational MIP images were reformatted. The source images were also reviewed. COMPARISON: None available FINDINGS: There are artifacts somewhat limiting evaluation. MRA neck: No occlusion or hemodynamically significant stenosis is identified involving the bilateral common carotid arteries, carotid bulbs, internal carotid arteries or vertebral arteries. No hemodyn amically significant stenosis is identified by NASCET criteria. No dissection is seen. MRA Brain: There is focal high-grade stenosis versus artifact at the left internal carotid artery. N o occlusion or significant stenosis is identified involving the intracranial right internal carotid artery, bilateral middle or anterior cerebral arteries, bilateral vertebral arteries, basilar artery or bilateral posterior cerebral arteries. No gross aneurysm or vascular malformation is seen. IMPRESSION: 1. Evaluation somewhat limited by artifacts. 2. MRA brain: Focal high-grade stenosis versus artifact at the supraclinoid left ICA. Otherwise no o cclusion or significant stenosis identified. 3. MRA neck: No occlusion or hemodynamically significant stenosis identified. 4. Consider further evaluation with CT angiography. RPTAT: HESO .Raphael Denis MD, Date Time Electronically viewed and signed by .Raphael Deins MD, on 05/01/2016 16:01 .O/
[2016-05-01] MEDS ORDERED: HUMULIN 70/30 3ML VIAL SC SCH (17:35)
[2016-05-01] MEDS ORDERED: NA POLYST SULFON 15 GM/60 ML BTL PR ONE (19:00)
[2016-05-01] MEDS ORDERED: INSULIN GLARGINE [LANtus] 3 ML PEN SC SCH ×2 (20:00)
[2016-05-01] MEDS ORDERED: DEXTROSE 5%-0.9% NACL 1,000 ML IV SCH (20:30)
[2016-05-01] MEDS: MONTELUKAST 10 MG TAB PO SCH (20:53)
[2016-05-01] MEDS: ATORVASTATIN 40 MG TAB PO SCH (20:53)
[2016-05-02] VITALS (12 sets, daily range): BP systolic 130–143; BP diastolic 60–82; PULSE 56–68; RESP 16–20
[2016-05-02] MEDS: PANTOPRAZOLE (EC) 40 MG TAB PO SCH (06:00)
[2016-05-02] MEDS: HEPARIN 5,000 UNIT/0.5 ML SYG SC SCH ×3 (06:00→21:41)
[2016-05-02] MEDS: LEVOTHYROXINE 150 MCG TAB PO SCH (06:12)
[2016-05-02] MEDS: GABAPENTIN 300 MG CAP PO SCH ×3 (09:00→21:36)
[2016-05-02] MEDS: RANOLAZINE (SR) 500 MG TAB PO SCH ×2 (09:00→21:35)
[2016-05-02] MEDS: ASPIRIN (EC) 81 MG TAB PO SCH (09:00)
[2016-05-02] MEDS: GEMFIBROZIL 600 MG TAB PO SCH ×2 (09:00→21:35)
[2016-05-02] MEDS: EMPAGLIFLOZIN 10 MG TABLET PO SCH (09:00)
[2016-05-02] MEDS: OXYBUTYNIN 5 MG TAB PO SCH ×3 (09:00→21:00)
[2016-05-02] MEDS: CLOPIDOGREL 75 MG TAB PO SCH (09:00)
--- NOTE | 2016-05-02 09:17 | PN ---
Date/Time of Note Date/Time of Note DATE: 05/02/16 TIME: 08:57 Assessment/Plan VTE Prophylaxis VTE Prophylaxis Intervention: heparin Lines/Catheters IV C[facility] Type [facility]from [facility] Saline Lock Urinary Cath still in place: No Assessment/Plan Assessment/Plan 60-year-old female with: 1. Episode of Diplopia. She seems to be pointing to her left eye when complaining of visual disturbances. MRI brain with findings of Acute and subacute CVA Discussed with Neurology and MRA brain and neck done with findings of focal high grade stenosis vs artifact at the supraclinoid left ICA. Otherwise no occlusion or significant stenosis identified. On ASA and Plavix already because of cardiac stent but ok to change to Plavix and Eliquis and d/c ASA per Dr Berkowitz, (patient has 0$ copay for eliquis after insurance verification today) CTA head result pending and so far no VALENTÍN Physical therapy, occupational therapy, speech therapy eval 2. Coronary artery disease. Continue outpatient regimen. 3. Hypertension. Continue current regimen. 4. Diabetes mellitus. A1c is 9.6. Insulin regimen discussed with DM educator and changing patient to Lantus So starting Lantus 40 units QHS and novolog 10 units QAC. Likely will need to titrate Lantus up Continue current outpatient po meds for now. 5. Hypertensive and diabetic nephropathy with chronic kidney disease, stage III. Stable renal function. On IVF 6. Hyperlipidemia. Increase Lipitor to 40 mg po daily and also continue Gemfibrozil for now. 7. Hypothyroidism. Continue Synthroid. 8. Chronic obstructive pulmonary disease. Continue outpatient regimen. 9. Super morbid obesity. The patient actually seems to have lost some weight. DISPOSITION: Work up for newly diagnosed acute CVA, PT/OT. CTA head results pending. D/c plan for tomorrow Thursday with Home Health PT, if BG stable, per Neurology Ok to d/c as Neurologically stable. Patient does already have FWW at home Prophylaxis. Protonix for GI prophylaxis and heparin subq for DVT prophylaxis. Subjective 24 Hr Interval Summary Free Text/Dictation Patient doing well No New deficits BG better this AM CTA head doen this AM and results pending Patient not really willing to have VALENTÍN and per cardio not absolutely necessary based on improved echo, recommendation is to put on Plavix and Eliquis and d/c ASA Exam/Review of Systems Vital Signs Vitals Vital Signs Date Time Temp Pulse Resp B/P Pulse Ox O2 Delivery O2 Flow Rate FiO2 05/02/16 08:28 60 05/02/16 07:00 97.8 19 141/63 100 05/02/16 04:00 Nasal Cannula 3.0 Intake and Output 05/01/16 05/01/16 05/02/16 15:00 23:00 07:00 Intake Total 320 ml 790 ml Output Total 700 ml Balance -380 ml 790 ml Exam Constitutional: alert, obese, oriented, well developed Respiratory: clear to auscultation, normal air movement Cardiovascular: nl pulses, regular rate and rhythm Gastrointestinal: non-tender, soft Musculoskeletal: nl extremities to inspection Extremities: normal pulses, other (no edema, clubbing or cyanosis ) Neurological: MENTAL HEALTH COUNSELOR II-XII intact, nl mental status, nl speech, other (unchanged generalized weakness but still with visual imparirement mainly from left eye per patient ) Results Result Diagram: 05/01/16 0630 05/01/16 0630 Results 24 hrs Laboratory Tests Test 05/01/16 11:58 05/01/16 18:08 05/01/16 20:48 05/02/16 07:59 Bedside Glucose 314 H 163 150 175 Medications Medications Current Medications Aspirin (Halfprin) 81 mg DAILY PO Last administered on 05/01/16 10:19; Admin Dose 81 MG; Start 05/01/16 at 09:00 Clopidogrel Bisulfate (plaVIX) 75 mg DAILY PO Last administered on 05/01/16 10: 06; Admin Dose 75 MG; Start 05/01/16 at 09:00 Empaglifozin (Jardiance) 10 mg DAILY PO Last administered on 05/01/16 11:48; Admin Dose 10 MG; Start 05/01/16 at 09:00 Gabapentin (Neurontin) 300 mg TID PO Last administered on 05/01/16 20:53; Admin Dose 300 MG; Start 04/30/16 at 22:00 Gemfibrozil (Lopid) 600 mg BID PO Last administered on 05/01/16 20:54; Admin Dose 600 MG; Start 04/30/16 at 22:00 Montelukast Sodium (Singulair) 10 mg QHS PO Last administered on 05/01/16 20:53 ; Admin Dose 10 MG; Start 04/30/16 at 22:00 Oxybutynin Chloride (Ditropan) 5 mg TID PO Last administered on 05/01/16 20:53 ; Admin Dose 5 MG; Start 04/30/16 at 22:00 Ranolazine (Ranexa) 500 mg Q12 PO Last administered on 05/01/16 20:53; Admin Dose 500 MG; Start 04/30/16 at 22:00 Salmeterol Xinafoate/ Fluticasone (Advair 500/50 Diskus) 1 inh BID INH Last administered on 05/01/16 20:49; Admin Dose 1 INH; Start 04/30/16 at 22:00 Ondansetron HCl (Zofran Inj) 4 mg Q6H PRN IV NAUSEA AND/OR VOMITING; Start 04/30 at 17:30 Acetaminophen (Tylenol Tab) 650 mg Q6H PRN PO PAIN LEVEL 1-3 OR FEVER; Start at 17:30 Acetaminophen (Tylenol Supp) 650 mg Q6H PRN [place] PAIN LEVEL 1-3 OR FEVER; Start 04/30/16 at 17:30 Docusate Sodium (Colace) 100 mg Q12H PRN PO CONSTIPATION Last administered on 01:12; Admin Dose 100 MG; Start 04/30/16 at 17:30 Magnesium Hydroxide (Milk Of Mag) 30 ml DAILY PRN PO CONSTIPATION; Start at 17:30 Bisacodyl (Dulcolax Supp) 10 mg DAILY PRN [place] CONSTIPATION; Start 04/30/16 at 17: 30 Pantoprazole (Protonix Tab) 40 mg DAILY@06 PO Last administered on 05/01/16 05: 13; Admin Dose 40 MG; Start 05/01/16 at 06:00 Heparin Sodium (Porcine) (Heparin (5000 Units/0.5 ml)) 5,000 unit Q8 SC Last administered on 05/01/16 20:58; Admin Dose 5,000 UNIT; Start 04/30/16 at 22:00 Meclizine HCl (Antivert) 25 mg TID PRN PO VERTIGO; Start 04/30/16 at 18:30 Miscellaneous Information 1 ea NOTE XX ; Start 04/30/16 at 18:30 Glucose (Glutose) 15 gm Q15M PRN PO DECREASED GLUCOSE; Start 04/30/16 at 18:30 Glucose (Glutose) 22.5 gm Q15M PRN PO DECREASED GLUCOSE; Start 04/30/16 at 18:30 Dextrose (D50w Syringe) 25 ml Q15M PRN IV DECREASED GLUCOSE; Start 04/30/16 at 18:30 Dextrose (D50w Syringe) 50 ml Q15M PRN IV DECREASED GLUCOSE; Start 04/30/16 at 18:30 Glucagon (Glucagen) 1 mg Q15M PRN IM DECREASED GLUCOSE; Start 04/30/16 at 18:30 Glucose (Glutose) 15 gm Q15M PRN BUCCAL DECREASED GLUCOSE; Start 04/30/16 at 18: 30 Atorvastatin Calcium (Lipitor) 40 mg DAILY@21 PO Last administered on 05/01/16 20:53; Admin Dose 40 MG; Start 05/01/16 at 21:00 Insulin Glargine 20 unit 20 unit DAILY@20 SC Last administered on 05/01/16 20: 57; Admin Dose 20 UNIT; Start 05/01/16 at 20:00 Dextrose/Sodium Chloride (D5-NS) 1,000 ml @ 60 mls/hr [id number] IV Last administered on 05/01/16 20:49; Admin Dose 60 MLS/HR; Start 05/01/16 at 20:30 Procedures Procedures PROCEDURE: MRA brain, and neck without contrast CLINICAL INDICATION: Acute stroke TECHNIQUE: 3-D [id number] intracranial MRA brain, and neck without contrast was performed on a 3.0T scanner. Rotational MIP images were reformatted. The source images were also reviewed. COMPARISON: None available FINDINGS: There are artifacts somewhat limiting evaluation. MRA neck: No occlusion or hemodynamically significant stenosis is identified involving the bilateral common carotid arteries, carotid bulbs, internal carotid arteries or vertebral arteries. No hemodynamically significant stenosis is identified by NASCET criteria. No dissection is seen. MRA Brain: There is focal high-grade stenosis versus artifact at the left internal carotid artery. No occlusion or significant stenosis is identified involving the intracranial right internal carotid artery, bilateral middle or anterior cerebral arteries, bilateral vertebral arteries, basilar artery or bilateral posterior cerebral arteries. No gross aneurysm or vascular malformation is seen. IMPRESSION: 1. Evaluation somewhat limited by artifacts. 2. MRA brain: Focal high-grade stenosis versus artifact at the supraclinoid left ICA. Otherwise no occlusion or significant stenosis identified. 3. MRA neck: No occlusion or hemodynamically significant stenosis identified. 4. Consider further evaluation with CT angiography. RPTAT: HESO .Raphael Denis MD, Date Time Electronically viewed and signed by .Raphael Denis MD, MD on 05/01/2016 15:53 CHEYANNE MONTENEGRO May 02, 2016 09:08
[2016-05-02 09:37] LABS: BASOPHIL # 0.1 10^3/ul (0.0-0.1); BASOPHILS % 0.5 % (0.0-2.0); CONDITION 1; EOSINOPHILS # 0.2 10^3/ul (0.0-0.5); EOSINOPHILS % 2.2 % (0.0-7.0); HEMATOCRIT 37.3 % (37.0-47.0); HEMOGLOBIN 12.3 g/dl (12.0-16.0); LH ANALYZER COMMENTS 1; LYMPHOCYTES # 2.9 10^3/ul (0.8-2.9); LYMPHOCYTES % 29.6 % (15.0-51.0); MEAN CORPUSCULAR HEMOGLOBIN 28.3 pg (29.0-33.0); MEAN CORPUSCULAR HGB CONC 32.9 g/dl (32.0-37.0); MEAN PLATELET VOLUME 9.7 fl (7.4-10.4); MONOCYTE # 0.7 10^3/ul (0.3-0.9); MONOCYTES % 6.9 % (0.0-11.0); NEUTROPHILS % 60.8 % (39.0-77.0); PLATELET COUNT 194 10^3/UL (140-440); RED BLOOD COUNT 4.34 10^6/ul (4.20-5.40); RED CELL DISTRIBUTION WIDTH 15.2 % (11.5-14.5); UNCORRECTED WBC 9.9 10^3/ul (4.8-10.8); WHITE BLOOD COUNT 9.9 10^3/ul (4.8-10.8)
[2016-05-02 09:46] LABS: POTASSIUM 5.1 mmol/L (3.5-5.1)
[2016-05-02 09:48] LABS: CREATININE 1.14 mg/dl (0.44-1.00)
--- NOTE | 2016-05-02 09:49 | RADRPT ---
Echocardiogram Report Patient Name: JUAN RAMON RODRIGUEZ Gender: Female Date: 1955 Study Date: 01-May-2016 Netezza Developer: Cr Greenwood [facility] Location: [id number] Ref. Physician: NATALIE MONTENEGRO Quality: Technically Difficult Study Procedures: Transthoracic echocardiogram with complete 2D, M-Mode, and doppler examination. Indications: embolic cva. r/o thrombus. 2D/M Mode Doppler Measurement Value Normal Ranges Measurement Value Normal Ranges LVIDd 2D 4.2 3.5 - 5.6 cm AV Peak Zac 1.5 m/sec LVIDs 2D 2.6 2.1 - 4.1 cm AV Peak PG 9.0 mmHg FS 2D 38.6 % LVOT Peak Zac 0.9 m/sec LVPWd 2D 1.2 0.6 - 1.1 cm LVOT Peak PG 3.0 mmHg IVSd 2D 1.2 0.6 - 1.1 cm MV E Peak Zac 0.3 m/sec IVS/LVPW 2D 1.0 MV A Peak Zac 0.6 m/sec AoR Diam 2D 2.9 2.0 - 3.7 cm MV E/A 0.6 LA/Ao 2D 1 0 - 1 MV Decel Time 173 msec EDV 2D 74.1 cm3 MV E/A 0.6 ESV 2D 17.2 cm3 TR Peak Zac 2.3 m/sec LA Dimen 2D 3.1 2.3 - 4.0 cm TR Peak PG 21.0 mmHg RVSP 24.0 mmHg Findings Left Ventricle: Normal left ventricular systolic function. Normal left ventricular cavity size. Mild concentric left ventricular hypertrophy. Ejection fraction is visually estimated at 55 %. Tissue Doppler/Mitral Doppler indices are consistent with impaired relaxation (Stage I diastolic dysfunction). Right Ventricle: Normal right ventricular size. Normal right ventricular systolic function. Left Atrium: The left atrium is normal in size. Right Atrium: The right atrium is normal in size. Mitral Valve: Mitral valve leaflets appear mildly thickened. Mild mitral annular calcification. Trace mitral regurgitation. Aortic Valve: Normal appearance of the aortic valve. No significant aortic stenosis or insufficiency. Tricuspid Valve: Normal appearance of the tricuspid valve. Estimated peak PA systolic pressure 24 mmHg. There is trace tricuspid regurgitation. Pericardium: There is an anterior echo free space consistent with epicardial fat pad. Aorta: Normal aortic root. IVC: Normal size and normal respiratory collapse consistent with normal right atrial pressure. Conclusions 1.Normal left ventricular systolic function. Normal left ventricular cavity size. Mild concentric left ventricular hypertrophy. Ejection fraction is visually estimated at 55 %. Tissue Doppler/Mitral Doppler indices are consistent with impaired relaxation (Stage I diastolic dysfunction). 2.The left atrium is normal in size. 3.Mitral valve leaflets appear mildly thickened. Mild mitral annular calcification. Trace mitral regurgitation. 4.Normal appearance of the aortic valve. No significant aortic stenosis or insufficiency. 5.Normal appearance of the tricuspid valve. Estimated peak PA systolic pressure 24 mmHg. There is trace tricuspid regurgitation. Electronically Signed By: Alex Berkowitz 02-May-2016 09:48:15 -0800 Patient Name: JUAN RAMON RODRIGUEZ Study Date: 01-May-2016 [id number]
[2016-05-02 09:50] LABS: MAGNESIUM 2.1 mg/dl (1.7-2.5); PHOSPHORUS 4.8 mg/dl (2.5-4.9)
[2016-05-02] MEDS: INSULIN ASPART [NOVOLOG] 3 ML PEN SC SCH ×7 (10:30→21:00)
[2016-05-02] MEDS: SALMETEROL/FLUTICASONE 500/50 INHA INH SCH ×2 (10:31→21:37)
[2016-05-02] MEDS: SOD CHLORIDE 0.9% 1,000 ML IV SCH (11:22)
[2016-05-02] MEDS: METOPROLOL (XL) 25 MG TAB PO SCH (11:26)
--- NOTE | 2016-05-02 12:18 | RADRPT ---
PROCEDURE: CTA BRAIN WITH CONTRAST CLINICAL INDICATION: Stenosis COMPARISON: Correlation MRA brain 05/01/2016 TECHNIQUE: Helical axial images were obtained through the head with contrast. Coronal and sagittal MIP images w ere obtained through the brain. Additional 3D volumetric renderings were created. 100 cc of Isovue 370 was administered intravenously without reported complication. DOSE: CTDI = 90/35 mGy and the DLP = 651 mGy-cm. FINDINGS: Mild luminal narrowing of the bilateral clinoid and supraclinoid ICA. The prior possible severe stas nosis of the left supraclinoid ICA was likely in part due to artifact. Hypoplastic left A1 segment.N o evidence of a significant stenosis of the bilateral TOM, MCA, or left AUDIT SENIOR ASSOCIATE vessels. Moderate right P1/P2 junction stenosis with an additional right P3 focal stenosis. The bilateral vertebral and basi lar arteries are without significant stenosis or occlusion. No aneurysm identified. IMPRESSION: Mild luminal narrowing of the bilateral clinoid and supraclinoid ICA. The prior possible severe stas nosis of the left supraclinoid ICA was likely in part due to artifact. Moderate right P1/P2 junction stenosis with an additional right P3 focal stenosis. RPTAT: AA .Henry Mak MD, Date Time Electronically viewed and signed by .Henry Mak MD, on 05/02/2016 12:18 .T/
--- NOTE | 2016-05-02 13:42 | CONS ---
DATE OF ADMISSION: 04/30/2016 DATE OF CONSULTATION: 05/02/2016 TYPE OF CONSULTATION: Cardiology. REFERRING PHYSICIAN: Dr. Taylor. REASON FOR CONSULTATION: Rule out cardioembolic source for CVA. CHIEF COMPLAINT: Eye visual changes, dizziness. HISTORY OF PRESENT ILLNESS: Thank you for this referral. History obtained from the patient, carol lawson review of the old chart. The patient also known to me from previous admission with previous hos pitalization with Dr. Taylor and staff. This is a 60-year-old female with history of coronary artery disease, status post ID, status post multivessel percutaneous coronary intervention, morbid obesity, COPD, tobacco use, cardiomyopathy, obesity hypoventilation syndrome, who came to emergency room wit h complaint of eye vision changes. Workup including MRI had shown CVA and has been concern about em bolic CVA per neurology's recommendation. We were kindly asked to evaluate. PAST MEDICAL HISTORY: Coronary artery disease, status post ID, status post PCI of the LAD and left circumflex artery in September 2015, history of ischemic cardiomyopathy, ejection fraction has been about 35% at the time of ID, diabetes, diabetic nephropathy, hypertension, chronic kidney disease, dyslip idemia, morbid obesity, hypothyroidism, COPD, obstructive sleep apnea. SURGICAL HISTORY: Status post coronary intervention of the left anterior descending and RCA. SOCIAL HISTORY: The patient has smoked for a long time, apparently has quit 6 months ago. MEDICATIONS: As per medical reconciliation, personally reviewed. She is on: 1. Aspirin. 2. Plavix. 3. Gemfibrozil. 4. Ranexa. 5. Zocor. 6. Advair. 7. Jardiance. 8. Insulin. 9. Synthroid. REVIEW OF SYSTEMS: As above mentioned. PHYSICAL EXAMINATION: VITAL SIGNS: Temperature 97.2, heart rate of 60, blood pressure 141/62, respiration rate of 19, sat urating 100%. HEENT: Normocephalic, atraumatic, morbidly obese female. Pupils are equal. CARDIOVASCULAR: Regular rate and rhythm, systolic murmur. PULMONARY: With no wheezes. GASTROINTESTINAL: Obese, soft, nontender. EXTREMITIES: Trivial edema. NEUROLOGIC: Awake and alert, responds appropriately. PSYCHIATRIC: Appears to be calm and pleasant. LABORATORY: WBC of 9.9, hemoglobin 12.3, platelet 194. Sodium 144, potassium 5.1, BUN of 24, creat inine ____, glucose 202. Cholesterol 168, LDL of 87, HDL 37. TSH of 5.8. EKG shows normal sinus r hythm. DIAGNOSTIC DATA: Echocardiogram was personally reviewed, was a technically difficult study which sh owed normal ejection fraction about 55%, which is significantly improved compared to before. Left a trial size appears to be normal. Brain MRI shows acute recent infarction within the right paramedia l anne, left dorsal mid brain and left anterior ____. No acute hemorrhage. ASSESSMENT AND PLAN: 1. Acute cerebrovascular accident, consistent with a cardioembolic stroke. 2. History of coronary artery disease. 3. History of percutaneous coronary intervention. 4. History of myocardial infarction. 5. Diabetes. Hemoglobin A1c of 9.6. 6. Morbid obesity. 7. Obstructive sleep apnea. 8. Hypertension. 9. Chronic kidney disease. 10. Thyroid disorder. RECOMMENDATIONS: VALENTÍN was offered to the patient; however, at this point, she does not want it. I w ill start the patient on low dose of beta nina. Aspirin and Plavix will be continued for now. O ther options would be to start the patient on Eliquis to replace the aspirin. Given her multiple ri sk factors and obstructive sleep apnea, it is quite reasonable to assume that the patient has had pa roxysmal atrial fibrillation and with a cardiac embolic stroke, may benefit from anticoagulation. H owever, at this point we have not been able to ____. I do recommend consideration for placement of a 30-day cardiac monitoring to rule out evidence of any paroxysmal atrial fibrillation. Thank you for this referral. We will continue to follow with you as needed. Dictated By: SHORTY DOUGLAS/DANIELA Conf#: [id number] DID#: [id number]
[2016-05-02] MEDS: APIXABAN 5 MG TABLET PO SCH ×2 (16:17→21:36)
[2016-05-02] MEDS ORDERED: IODIXANOL LOCM 100 ML BTL ONE (16:51)
[2016-05-02] MEDS ORDERED: SOD CHLORIDE 0.9% 100 ML ONE (16:51)
[2016-05-02] MEDS ORDERED: INSULIN GLARGINE [LANtus] 3 ML PEN SC SCH (20:00)
[2016-05-02] MEDS: ATORVASTATIN 40 MG TAB PO SCH (21:35)
[2016-05-02] MEDS: MONTELUKAST 10 MG TAB PO SCH (21:36)
[2016-05-03] VITALS (10 sets, daily range): BP systolic 131–150; BP diastolic 63–81; PULSE 59–76; RESP 16–23
[2016-05-03] MEDS: SOD CHLORIDE 0.9% 1,000 ML IV SCH ×2 (00:55→15:14)
[2016-05-03] MEDS: LEVOTHYROXINE 150 MCG TAB PO SCH (06:02)
[2016-05-03] MEDS: PANTOPRAZOLE (EC) 40 MG TAB PO SCH (06:02)
[2016-05-03] MEDS: HEPARIN 5,000 UNIT/0.5 ML SYG SC SCH ×2 (06:09→15:18)
[2016-05-03] MEDS: APIXABAN 5 MG TABLET PO SCH (08:18)
[2016-05-03] MEDS: SALMETEROL/FLUTICASONE 500/50 INHA INH SCH (08:18)
[2016-05-03] MEDS: OXYBUTYNIN 5 MG TAB PO SCH ×2 (08:18→12:14)
[2016-05-03] MEDS: RANOLAZINE (SR) 500 MG TAB PO SCH (08:19)
[2016-05-03] MEDS: EMPAGLIFLOZIN 10 MG TABLET PO SCH (08:19)
[2016-05-03] MEDS: CLOPIDOGREL 75 MG TAB PO SCH (08:19)
[2016-05-03] MEDS: GABAPENTIN 300 MG CAP PO SCH ×2 (08:19→12:14)
[2016-05-03] MEDS: GEMFIBROZIL 600 MG TAB PO SCH (08:19)
[2016-05-03] MEDS: INSULIN ASPART [NOVOLOG] 3 ML PEN SC SCH ×6 (08:20→17:08)
[2016-05-03] MEDS: METOPROLOL (XL) 25 MG TAB PO SCH (08:23)
[2016-05-03 08:52] LABS: POTASSIUM 4.6 mmol/L (3.5-5.1)
[2016-05-03 08:53] LABS: MAGNESIUM 2.2 mg/dl (1.7-2.5); PHOSPHORUS 4.5 mg/dl (2.5-4.9)
[2016-05-03 08:54] LABS: CREATININE 1.18 mg/dl (0.44-1.00)
[2016-05-03 08:55] LABS: CALCIUM 8.8 mg/dl (8.4-10.2)
[2016-05-03 09:39] LABS: HEMATOCRIT 38.3 % (37.0-47.0); HEMOGLOBIN 11.8 g/dl (12.0-16.0); LYMPHOCYTES % 30.2 % (15.0-51.0); MEAN CORPUSCULAR HEMOGLOBIN 27.4 pg (29.0-33.0); MEAN CORPUSCULAR HGB CONC 30.8 g/dl (32.0-37.0); MEAN CORPUSCULAR VOLUME 89.1 fl (82.0-101.0); MEAN PLATELET VOLUME 11.3 fl (7.4-10.4); NEUTROPHILS % 59.4 % (39.0-77.0); PLATELET COUNT 188 10^3/UL (140-440); RED CELL DISTRIBUTION WIDTH 14.9 % (11.5-14.5); UNCORRECTED WBC 9.9 10^3/ul (4.8-10.8); WHITE BLOOD COUNT 9.9 10^3/ul (4.8-10.8)
[2016-05-03 09:40] LABS: BASOPHILS % 0.6 % (0.0-2.0); EOSINOPHILS % 2.1 % (0.0-7.0); MONOCYTES % 7.3 % (0.0-11.0)
--- NOTE | 2016-05-03 13:45 | CONS ---
Date/Time of Note Date/Time of Note DATE: 05/03/16 TIME: 13:38 Consult Date/Type/Reason Admit Date/Time Apr 30, 2016 at 15:48 Initial Consult Date 05/01/16 Type of Consultation: Neurology Ordering Provider: CHEYANNE MONTENEGRO Subjective No new problems, same dizziness Objective Vital Signs Date Time Temp Pulse Resp B/P Pulse Ox O2 Delivery O2 Flow Rate FiO2 05/03/16 12:06 76 05/03/16 11:00 97.7 21 139/63 93 05/03/16 04:53 Room Air 05/02/16 16:18 2.0 Intake and Output 05/02/16 05/02/16 05/03/16 14:59 22:59 06:59 Intake Total 720 ml 600 ml Balance 720 ml 600 ml Results/Medications Result Diagram: 05/03/16 0704 05/03/16 0704 Results 24 hrs Laboratory Tests Test 05/02/16 17:18 05/03/16 07:04 05/03/16 07:09 05/03/16 07:24 Bedside Glucose 177 193 Anion Gap 18 H Basophils % 0.6 Blood Urea Nitrogen 29 H Calcium Level 8.8 Carbon Dioxide Level 23 Chloride Level 107 Creatinine 1.18 H Eosinophils % 2.1 Glucose Level 202 Hematocrit 38.3 Hemoglobin 11.8 L Lymphocytes % 30.2 Mean Corpuscular Hemoglobin 27.4 L Mean Corpuscular Hemoglobin Concent 30.8 L Mean Corpuscular Volume 89.1 Mean Platelet Volume 11.3 H Monocytes % 7.3 Neutrophils % 59.4 Nucleated Red Blood Cells % 0.0 Platelet Count 188 Potassium Level 4.6 Red Blood Count 4.30 Red Cell Distribution Width 14.9 H Sodium Level 143 White Blood Count 9.9 Magnesium Level 2.2 Phosphorus Level 4.5 Test 05/03/16 12:13 Bedside Glucose 240 H Medications Current Medications Clopidogrel Bisulfate (plaVIX) 75 mg DAILY PO Last administered on 05/03/16 08: 19; Admin Dose 75 MG; Start 05/01/16 at 09:00 Empaglifozin (Jardiance) 10 mg DAILY PO Last administered on 05/03/16 08:19; Admin Dose 10 MG; Start 05/01/16 at 09:00 Gabapentin (Neurontin) 300 mg TID PO Last administered on 05/03/16 12:14; Admin Dose 300 MG; Start 04/30/16 at 22:00 Gemfibrozil (Lopid) 600 mg BID PO Last administered on 05/03/16 08:19; Admin Dose 600 MG; Start 04/30/16 at 22:00 Montelukast Sodium (Singulair) 10 mg QHS PO Last administered on 05/02/16 21:36 ; Admin Dose 10 MG; Start 04/30/16 at 22:00 Oxybutynin Chloride (Ditropan) 5 mg TID PO Last administered on 05/03/16 12:14 ; Admin Dose 5 MG; Start 04/30/16 at 22:00 Ranolazine (Ranexa) 500 mg Q12 PO Last administered on 05/03/16 08:19; Admin Dose 500 MG; Start 04/30/16 at 22:00 Salmeterol Xinafoate/ Fluticasone (Advair 500/50 Diskus) 1 inh BID INH Last administered on 05/03/16 08:18; Admin Dose 1 INH; Start 04/30/16 at 22:00 Ondansetron HCl (Zofran Inj) 4 mg Q6H PRN IV NAUSEA AND/OR VOMITING; Start 04/30 at 17:30 Acetaminophen (Tylenol Tab) 650 mg Q6H PRN PO PAIN LEVEL 1-3 OR FEVER; Start at 17:30 Acetaminophen (Tylenol Supp) 650 mg Q6H PRN [place] PAIN LEVEL 1-3 OR FEVER; Start 04/30/16 at 17:30 Docusate Sodium (Colace) 100 mg Q12H PRN PO CONSTIPATION Last administered on 01:12; Admin Dose 100 MG; Start 04/30/16 at 17:30 Magnesium Hydroxide (Milk Of Mag) 30 ml DAILY PRN PO CONSTIPATION; Start at 17:30 Bisacodyl (Dulcolax Supp) 10 mg DAILY PRN [place] CONSTIPATION; Start 04/30/16 at 17: 30 Pantoprazole (Protonix Tab) 40 mg DAILY@06 PO Last administered on 05/03/16 06: 02; Admin Dose 40 MG; Start 05/01/16 at 06:00 Heparin Sodium (Porcine) (Heparin (5000 Units/0.5 ml)) 5,000 unit Q8 SC Last administered on 05/03/16 06:09; Admin Dose 5,000 UNIT; Start 04/30/16 at 22:00 Meclizine HCl (Antivert) 25 mg TID PRN PO VERTIGO; Start 04/30/16 at 18:30 Miscellaneous Information 1 ea NOTE XX ; Start 04/30/16 at 18:30 Glucose (Glutose) 15 gm Q15M PRN PO DECREASED GLUCOSE; Start 04/30/16 at 18:30 Glucose (Glutose) 22.5 gm Q15M PRN PO DECREASED GLUCOSE; Start 04/30/16 at 18:30 Dextrose (D50w Syringe) 25 ml Q15M PRN IV DECREASED GLUCOSE; Start 04/30/16 at 18:30 Dextrose (D50w Syringe) 50 ml Q15M PRN IV DECREASED GLUCOSE; Start 04/30/16 at 18:30 Glucagon (Glucagen) 1 mg Q15M PRN IM DECREASED GLUCOSE; Start 04/30/16 at 18:30 Glucose (Glutose) 15 gm Q15M PRN BUCCAL DECREASED GLUCOSE; Start 04/30/16 at 18: 30 Atorvastatin Calcium (Lipitor) 40 mg DAILY@21 PO Last administered on 05/02/16 21:35; Admin Dose 40 MG; Start 05/01/16 at 21:00 Metoprolol Succinate 12.5 mg 12.5 mg DAILY PO Last administered on 05/03/16 08: 23; Admin Dose 12.5 MG; Start 05/02/16 at 11:00 Sodium Chloride (NS) 1,000 ml @ 75 mls/hr [id number] IV Last administered on 00:55; Admin Dose 75 MLS/HR; Start 05/02/16 at 11:00 Insulin Glargine (Lantus) 40 unit DAILY@20 SC Last administered on 05/02/16 21: 42; Admin Dose 40 UNIT; Start 05/02/16 at 20:00 Apixaban (Eliquis) 5 mg BID PO Last administered on 05/03/16 08:18; Admin Dose 5 MG; Start 05/02/16 at 15:00 Assessment/Plan Chief Complaint/Hosp Course awake and alert, fluent speech pupils 3 mm fixed, VFF, blinks to threat, EOMI no nystagmus, mild right NLF flattening, palate upgoing uvula midline Moves all extremities symmetrically, at least 3/5, preserved sensation of touch Coordination in tact in UE A/P Acute CVAs, agree with current treatment, pls continue anticoagulation and plavix, keep normotensive euglycemic Problems: SOCRATES DIXON MD May 03, 2016 13:45
--- NOTE | 2016-05-03 15:33 | DS ---
Date/Time of Note Date/Time of Note DATE: 05/03/16 TIME: 15:32 Discharge Summary Admission/Discharge Info Admit Date/Time Apr 30, 2016 at 15:48 Discharge Date/Time May 03, 2016 Final Diagnosis 1. Acute stroke in left dorsal midbrain, right paramedian anne, left posterior frontal lobe, and left anterior galicia radiata. 2. Chronic infarction of anne, bilateral basal ganglia, and thalamic lacunar infarcts. 3. Diabetes 4. Hypothyroidism 5. COPD Patient Condition: Good Consults Socrates Matias MD and Verena Watts (neurology) Shorty Berkowitz MD (cardiology) Procedures 1. MRI/MR angiogram of the neck and head 2. CT/CT angiogram of the head 3. Carotid Doppler 4. Trans-thoracic echocardiogram Hx of Present Illness 60 year old patient of Dr. Marcelino Gore with a history of severe obesity, diabetes, coronary disease, (EF:35%), COPD, chronic smoking, and obstructive sleep apnea, who presented three days ago with two days of diplopia, dizziness and gait imbalance due to weakness in her lower extremities and difficulty with ambulation. She had no dysphasia or dysphagia. She takes aspirin 81 mg and Plavix 75 mg daily. Medical history: 1. Status post PTCA x2 in 09/2015 with stenting of LAD and RCA. 2. Ischemic cardiomyopathy, ejection fraction of 35%. 3. Diabetes mellitus. 4. Diabetic nephropathy. 5. Hypertensive nephropathy. 6. Chronic kidney disease stage III. 7. Hyperlipidemia. 8. Hypothyroidism. 9. Chronic obstructive pulmonary disease. 10. Obstructive sleep apnea. 11. Super morbid obesity. Hospital Course In the ER, lab studies showed white blood cell count of 13.9, hemoglobin 12.9, hematocrit 39.1, platelet count of 230. Chemistry with a sodium of 143, potassium 4.8, chloride 104, bicarbonate 25, BUN 31, creatinine 1.49, glucose of 226, calcium 9.1. LFTs within normal. Troponin less than 0.012. INR 0.94, PT 12.6, PTT 31.0. EKG showed sinus rhythm, with no acute ischemic changes. A portable chest x-ray showed no acute cardiopulmonary disease. CT scan of the brain showed chronic changes, with chronic pontine and thalamic lacunar infarcts and moderate small vessel disease. MRI of the brain showed an acute stroke in left dorsal midbrain, right paramedian anne, left posterior frontal lobe, and left anterior galicia radiata. There were also signs of chronic pontine infarcts, chronic bilateral basal ganglia and thalamic lacunar infarcts. Concern was raised about thromboembolic stroke with a cardiac source. Echocardiogram showed normal left ventricular systolic function, with mild concentric left ventricular hypertrophy and EF of 55 %. Tissue Doppler/ Mitral Doppler was consistent with Stage I diastolic dysfunction. The mitral valve leaflets appeared mildly thickened, with mild mitral annular calcification and trace mitral regurgitation, but no mention of vegetations. The aortic and tricuspid valves were normal. She worked with physical therapy, transferring from supine to sitting, but was not able to bear weight. She continued to complain of double vision, but had good strength and no difficulty eating, swallowing or speaking. She had no pain this afternoon. She was treated previously with ASA and Plavix because of her cardiac stent history. But Dr. Berkowitz recommending changing to Plavix and Eliquis (patient has no copay for Eliquis on insurance verification). Her diabetic control has not been good, with HgbA1c of 9.6%. She discussed the use of insulin with a diabetes nurse educator, who recommended changing her to Lantus 40 units QHS and novolog 10 units QAC. I will discharge her home with a recommendation of 45-units in light of blood glucose of 175 the last two mornings. On physical exam, she was quite large but comfortable-appearing. O2 sat was 91- 92% on room air, but she said she was more comfortable on O2 per nasal cannula. Respiratory: Clear to auscultation, normal air movement, no wheezing or crackles. Cardiovascular: Symmetric pulses, regular rhythm, normal rate. Gastrointestinal: non-tender, soft, large, positive bowel sounds. Neurological: IRRIGATIONIST II-XII intact, nl mental status, nl speech, no proximal muscle weakness. EOMI, PERRL. Toes downgoing. Home Meds Active Scripts Insulin Glargine* (Lantus*) 100 Unit/Ml Soln, 45 UNIT SC DAILY@20 for 30 Days Prov:POP CALLOWAY M.D. 05/03/16 Insulin Aspart* (Novolog Insulin Pen*) 100 Unit/Ml Soln, 10 UNIT SC WITH MEALS for 30 Days Prov:POP CALLOWAY M.D. 05/03/16 Apixaban* (Eliquis*) 5 Mg Tablet, 5 MG PO BID, #60 TAB Prov:POP CALLOWAY M.D. 05/03/16 Ranolazine* (Ranexa*) 500 Mg Tab.sr.12h, 500 MG PO Q12 for 30 Days, TAB 3 Refills Prov:Nick MONTENEGROALONZOGORDON 10/11/15 Clopidogrel Bisulfate (Clopidogrel) 75 Mg Tablet, 75 MG PO DAILY for 30 Days, TAB 3 Refills Prov:MONIBoMiltonALONZOGORDON 10/11/15 Reported Medications Simvastatin* (Zocor*) 40 Mg Tablet, 40 MG PO QHS, #30 TAB 09/25/15 Empagliflozin (Jardiance) 10 Mg Tablet, 10 MG PO DAILY, TAB 09/25/15 Gabapentin* (Gabapentin*) 300 Mg Capsule, 300 MG PO TID, #90 CAP 09/25/15 Omeprazole* (Omeprazole*) 20 Mg Capsule.dr, 20 MG PO DAILY, #30 CAP 09/25/15 Oxybutynin Chloride* (Ditropan*) 5 Mg Tab, 5 MG PO TID, TAB 09/25/15 Salmeterol Xinaf-Fluticasone* (Advair*) 500/50 Diskus Inhaler, 1 INH INHALATION BID, #1 INHALER 09/25/15 Levothyroxine Sodium* (Levothyroxine Sodium*) 150 Mcg Tablet, 150 MCG PO BEFORE BREAKFAST, #30 TAB 09/25/15 Montelukast Sodium* (Montelukast Sodium*) 10 Mg Tablet, 10 MG PO QHS, #30 TAB 09/25/15 Gemfibrozil* (Gemfibrozil*) 600 Mg Tablet, 600 MG PO BID, TAB 09/25/15 Discontinued Reported Medications Aspirin (Low Dose Aspirin) 81 Mg Tablet.dr, 81 MG PO DAILY, #30 TAB 10/15/15 Insulin Isophan/Regular (Humulin 70/30) 100 Units/Ml Susp, 30 UNIT SC TID, EA 09/25/15 Discontinued Scripts Nicotine* (Nicoderm* Patch) 21 mg/day Patch, 1 PATCH TRANSDERM DAILY for 30 Days , PATCH 3 Refills Prov:MONIBoMiltonALONZOGORDON 10/11/15 Levofloxacin* (Levofloxacin*) 250 Mg Tablet, 250 MG PO DAILY@06 for 3 Days, TAB Prov:CHEYANNE MONTENEGRO 10/11/15 Follow-up Plan Primary care (Dr. Gore) and Neurology in the next two weeks. Pending Labs Laboratory Tests Test 05/02/16 17:18 05/03/16 07:04 05/03/16 07:09 05/03/16 07:24 Bedside Glucose 177mg/dL (70-220) 193mg/dL (70-220) Anion Gap 18 (8-16) Basophils % 0.6% (0.0-2.0) Blood Urea Nitrogen 29mg/dl (7-20) Calcium Level 8.8mg/dl (8.4-10.2) Carbon Dioxide Level 23mmol/L (21-31) Chloride Level 107mmol/L (97-110) Creatinine 1.18mg/dl (0.44-1.00) Eosinophils % 2.1% (0.0-7.0) Glucose Level 202mg/dl (70-220) Hematocrit 38.3% (37.0-47.0) Hemoglobin 11.8g/dl (12.0-16.0) Lymphocytes % 30.2% (15.0-51.0) Mean Corpuscular Hemoglobin 27.4pg (29.0-33.0) Mean Corpuscular Hemoglobin Concent 30.8g/dl (32.0-37.0) Mean Corpuscular Volume 89.1fl (82.0-101.0) Mean Platelet Volume 11.3fl (7.4-10.4) Monocytes % 7.3% (0.0-11.0) Neutrophils % 59.4% (39.0-77.0) Nucleated Red Blood Cells % 0.0/100WBC (0.0-0.0) Platelet Count 40286^3/UL (140-440) Potassium Level 4.6mmol/L (3.5-5.1) Red Blood Count 4.3010^6/ul (4.20-5.40) Red Cell Distribution Width 14.9% (11.5-14.5) Sodium Level 143mmol/L (135-144) White Blood Count 9.910^3/ul (4.8-10.8) Magnesium Level 2.2mg/dl (1.7-2.5) Phosphorus Level 4.5mg/dl (2.5-4.9) Test 05/03/16 12:13 Bedside Glucose 240mg/dL (70-220) Copies To: CC: CHEYANNE MONTENEGRO; VERENA WATTS MD; SHORTY BERKOWITZ MD; SOCRATES MATIAS MD, JOHN P. M.D. May 03, 2016 15:33
--- NOTE | 2016-05-03 16:05 | PDOCDIS ---
Discharge Instructions DIAGNOSIS Discharge Diagnosis: Acute and chronic embolic stroke CONDITION Patient Condition: Good HOME CARE INSTRUCTIONS: Diet Instructions: Special Diet: carbohydrate controlled with nectar thick ACTIVITY: Activity Restrictions: Slowly Increase Activity FOLLOW UP/APPOINTMENTS Appointments 1. Neurology and PCP in the next week 2. Home health arrangements to be made, for nursing and physical therapy. POP CALLOWAY M.D. May 03, 2016 16:04
[2016-05-03] MEDS ORDERED: NOVO3I SC (16:07)
[2016-05-03] MEDS ORDERED: LANT3I SC (16:07)
[2016-05-03] MEDS ORDERED: APIX5TAB PO (16:07)
== END 2016-05-03 19:40 | disposition home or self-care (01) | DRG 65 ==
LOC: E/R 11:34 → MS4 15:48
PROVIDERS: ADMIT Internal Medicine; ATTEND Internal Medicine
DX: I62.9 Nontraumatic intracranial hemorrhage, unspecified (principal); Z68.42 Body mass index [BMI] 45.0-49.9, adult; E11.40 Type 2 diabetes mellitus with diabetic neuropathy, unspecified; N18.3 Chronic kidney disease, stage 3 (moderate); E03.9 Hypothyroidism, unspecified; J44.9 Chronic obstructive pulmonary disease, unspecified; I12.9 Hypertensive chronic kidney disease with stage 1 through stage 4 chronic kidney disease, or unspecified chronic kidney disease; E78.5 Hyperlipidemia, unspecified; G47.33 Obstructive sleep apnea (adult) (pediatric); E66.01 Morbid (severe) obesity due to excess calories; Z79.4 Long term (current) use of insulin; Z79.82 Long term (current) use of aspirin
CPT/HCPCS: 36415; 70450; 70496; 70544; 70549; 70551; 71010; 80048; 80053; 80061; 81001; 81003; 82550; 82553; 82962; 83036; 83735; 84100; 84439; 84443; 84484; 85025; 85610; 85730; 92526; 92610; 93005; 93306; 93880; 96374; 97163; 97166; J1815; J2405; J7030; J7042; Q9967